=== PATIENT | female | born 1995 | race Caucasian/White ===

== ENCOUNTER 2019-10-25 16:32 | Emergency (ER) | payer MEDICAID ==
[~2019-10-25] VITALS: Ht 162.6 cm; Wt 72.7 kg
[2019-10-25 16:56] VITALS: BP 146/83
[2019-10-25] MEDS ORDERED: ALBU8HFA PO (17:21)
== END 2019-10-25 17:38 | disposition home or self-care (01) ==
LOC: ER 16:33
DX: J06.9 Acute upper respiratory infection, unspecified (principal); Z20.828 Contact with and (suspected) exposure to other viral communicable diseases; Z79.899 Other long term (current) drug therapy
CPT/HCPCS: 36415; 71045; 99284; U0003

== ENCOUNTER 2019-11-06 15:58 | Emergency (ER) | payer MEDICAID ==
[~2019-11-06 15:58] MED LIST: ALBU8HFA PO
== END 2019-11-06 16:35 | disposition left against medical advice (07) ==
LOC: ER 15:59
DX: Z00.00 Encounter for general adult medical examination without abnormal findings (principal); Z53.21 Procedure and treatment not carried out due to patient leaving prior to being seen by health care provider

== ENCOUNTER 2020-03-28 15:27 | Emergency (ER) | payer MEDICAID ==
[~2020-03-28] VITALS: Ht 162.6 cm; Wt 72.7 kg
[2020-03-28] MEDS ORDERED: dexamethasone sod phosphate 10mg/ml inj PO STA (15:47)
[2020-03-29] MEDS ORDERED: DULO60CA63 PO (05:17)
[2020-03-29] MEDS ORDERED: DIAZ5TAB PO (05:17)
[2020-03-29] MEDS ORDERED: METH36TA22 PO (14:08)
[2020-03-29] MEDS ORDERED: LAMO100T PO (14:08)
[2020-03-29] MEDS ORDERED: DIAZ-351 PO (14:08)
== END 2020-03-28 16:30 | disposition home or self-care (01) ==
LOC: ER 15:28
DX: J02.8 Acute pharyngitis due to other specified organisms (principal); Z20.828 Contact with and (suspected) exposure to other viral communicable diseases; Z87.891 Personal history of nicotine dependence; Z98.890 Other specified postprocedural states
CPT/HCPCS: 36415; 87635; 99283; J1100

== ENCOUNTER 2020-03-29 04:57 | Inpatient (IN) | payer MEDICAID ==
[~2020-03-29] VITALS: Ht 162.6 cm; Wt 77.0 kg
[2020-03-29] MEDS ORDERED: DIAZ5TAB PO (05:17)
[2020-03-29] MEDS ORDERED: DULO60CA63 PO (05:17)
--- NOTE | 2020-03-29 06:00 | NUR ---
dr. pollard at bedside to evaluate pt. pt ini airborn precautions dt having a covid swab pending from last night. pt then found getting out of bed and pulled iv out and had wisnessed fall onto ground and into the trash can. pt with no visable injuries , did not appear to hit her head,, and denies any pain. cleaned up and bedding changed and 2 person assist off ground and back to bed. Dr Pollard at bedside and request to have rapid covid run. swab collected. MARVIN Dunn assuming care
[2020-03-29 06:02] LABS: BASOPHILS % (AUTO) 0.3 % (0-1); EOSINOPHILS % (AUTO) 0.1 % (0-6); HEMATOCRIT 43.3 % (35.0-45.0); HEMOGLOBIN 14.7 g/dl (12.0-16.0); LYMPHOCYTES # (AUTO) 1.5 X10'3 (1.1-4.8); LYMPHOCYTES % (AUTO) 20.9 % (21-51); MEAN CORPUSCULAR HEMOGLOBIN 33.8 PG (27.0-31.0); MEAN CORPUSCULAR VOLUME 99.5 FL (78-98); MEAN PLATELET VOLUME 6.8 FL (7.4-10.4); MONOCYTES # (AUTO) 0.2 X10'3 (0-0.9); NEUTROPHILS # (AUTO) 5.4 X10'3 (1.8-7.7); NEUTROPHILS % (AUTO) 75.7 % (42-75); PLATELET COUNT 300 X10'3 (140-440); RED BLOOD COUNT 4.35 X10'6 (4.20-5.60); WHITE BLOOD COUNT 7.1 X10'3 (4.5-11.0)
[2020-03-29] MEDS ORDERED: LIDOcaine 1% W/epiNEPHrine 1:200,000 10ml vial IJ ONE (06:10)
--- NOTE | 2020-03-29 06:13 | NUR ---
notified to see left wrist wound. Wound is circa 4 cm in length and 1 cm wide..
[2020-03-29 06:18] LABS: ALANINE AMINOTRANSFERASE 51 U/L (12-78); ALBUMIN 4.1 G/DL (3.4-5.0); ALKALINE PHOSPHATASE 71 IU/L (46-116); ANION GAP 11 (8-16); ASPARTATE AMINO TRANSFERASE 22 U/L (10-37); BILIRUBIN,TOTAL 0.1 MG/DL (0.1-1.0); BLOOD UREA NITROGEN 6 MG/DL (7-18); CALCIUM 8.8 MG/DL (8.5-10.1); CHLORIDE 114 MMOL/L (99-107); GLUCOSE 84 MG/DL (70-104); POTASSIUM 3.4 MMOL/L (3.5-5.1); SODIUM 150 MMOL/L (135-145); TOTAL CARBON DIOXIDE 24.6 MMOL/L (24-32); TOTAL PROTEIN 8.4 G/DL (6.4-8.2); eGFR > 90 ML/MIN
[2020-03-29 06:27] LABS: URINE HCG NEGATIVE (NEG)
[2020-03-29 06:28] LABS: ETHANOL 0.231 GM/DL (0.0-0.010)
[2020-03-29 06:31] LABS: ACETAMINOPHEN 49.1 UG/ML (10-30)
[2020-03-29 06:33] LABS: CLARITY,URINE CLEAR (Clear); COLOR,URINE STRAW (Yellow); GLUCOSE, URINE NEGATIVE (Neg); KETONES,URINE NEGATIVE (Neg); LEUKOCYTE ESTERASE ,URINE NEGATIVE (Neg); NITRITES, URINE NEGATIVE (Neg); OCCULT BLOOD,URINE TRACE-INTACT (Neg); PROTEIN,URINE NEGATIVE (Neg); URINE AMPHETAMINE SCREEN NEGATIVE (Neg); URINE BARBITUATE SCREEN NEGATIVE (Neg); URINE BENZODIAZEPINES SCREEN POSITIVE (Neg); URINE CANNABINOID SCREEN NEGATIVE (Neg); URINE COCAINE SCREEN NEGATIVE (Neg); URINE METHADONE SCREEN NEGATIVE (Neg); URINE OPIATE SCREEN NEGATIVE (Neg); URINE PHENCYCLIDINE SCREEN NEGATIVE (Neg); UROBILINOGEN,URINE 0.2 E.U/dL (0.2-1.0)
[2020-03-29 06:47] LABS: UA COLLECTION TYPE OTHER
[2020-03-29 06:49] LABS: BACTERIA,URINE NONE SEEN /HPF (Neg); MUCUS STRANDS NONE SEEN /LPF (Neg); RBC,URINE NONE SEEN /HPF (0-2); SQUAMOUS EPITHELIAL CELL,UR FEW /LPF (FEW); WBC,URINE NONE SEEN /HPF (0-4)
--- NOTE | 2020-03-29 07:08 | NUR ---
POISON CONTROL HAD BEEN CALLED AFTER PATIENT TRIAGED AND DR. FENTON UPDATED BY MARVIN ROLLINS, OF RECOMMENDATIONS. NO NURSING NOTES WRITTEN SO I CALLED POISON CONTROL FOR THE ORIGNIAL RECOMMENDATIONS: WATCH FOR DRYWALL BOARDHANGER DEPRESSION AND RESPIRATORY DEPRESSION AND RECOMMENDATIONS FOR 4-6 HRS OF OBSERVATION. ALSO TO RUN BASIC LABS AND RULE OUT ELEVATED TYLENOL AND ASA LEVELS. NOW UPDATED OF LABS AND RECOMMEND STARTING MUCOMYST AND IF PROVIDER CHOOSES TO WAIT TO START, THEN REDRAW IN 4 HRS LFT AND TYLENOL. IF LFTS ELEVATED THEN START MUCOMYST. RECEIVING RNPARAG , UPDATED AND DR. RAYA UPDATE.
--- NOTE | 2020-03-29 08:15 | NUR ---
SUTURES APPLIED TO WOUND PER DR. RAYA. GAUZE DRESSING APPLIED FOR WOUND PROTECTION.
--- NOTE | 2020-03-29 08:40 | NUR ---
TOLERATED REGULAR DIET WELL AND RETAINED.
--- NOTE | 2020-03-29 09:30 | NUR ---
ASSUMED CARE OF PT, SPOKE TO HER SHE IS CALM AT THIS TIME, ASKED QUESTIONS, RE: IF SHE TRIED TO RUN OUT OF HERE, I EXPLAINED THE PROCESS OF HOW THINGS WORK HERE AND EVERYTHING THAT HAPPENS IN HER EVAL, SHE IS OK WITH THE PROCESS
--- NOTE | 2020-03-29 10:22 | NUR ---
SPOKE TO BERNARDA AT POISON CONTROL STATES THAT PT NEEDS TO BE STARTED ON MUCOMYST, WILL INFORM
[2020-03-29] MEDS ORDERED: ACETYLCYSTEINE IV ONE ×2 (10:25→11:30)
[2020-03-29] MEDS ORDERED: DEXTROSE 5% IV ONE ×2 (10:25→11:30)
[2020-03-29] MEDS ORDERED: WATER IV ONE ×2 (10:25→11:30)
--- NOTE | 2020-03-29 11:07 | NUR ---
pt is asleep, regular breathing observed, mucomyst running
[2020-03-29] MEDS ORDERED: acetaminophen 325mg tablet PO PRN (11:10)
[2020-03-29] MEDS ORDERED: magnesium hydroxide 30ml (MOM) UD suspension PO PRN (11:10)
[2020-03-29] MEDS ORDERED: ondansetron/PF 4mg/2ml inj IV PRN (11:10)
[2020-03-29] MEDS ORDERED: mag hydrox/Alum hydrox/simeth 30ml oral suspension PO PRN (11:10)
--- NOTE | 2020-03-29 11:21 | NUR ---
phlibotomy at bedside, pt is cooperative, no needs at this time
--- NOTE | 2020-03-29 11:40 | NUR ---
Man at bedside, pt is calm and cooperative
[2020-03-29] MEDS: normal saline 1000ml 1,000 ML IV SCH (11:52)
--- NOTE | 2020-03-29 12:30 | NUR ---
pt is asleep, regular breathing present, no needs at this time
--- NOTE | 2020-03-29 13:52 | NUR ---
pt is supine in bed, regular breathing present, eyes closed, appears to be asleep, mucomyst and NS running, no needs at this time
[2020-03-29] MEDS ORDERED: METH36TA22 PO (14:08)
[2020-03-29] MEDS ORDERED: DIAZ-351 PO (14:08)
[2020-03-29] MEDS ORDERED: LAMO100T PO (14:08)
--- NOTE | 2020-03-29 14:27 | NUR ---
Spoke with Prasad at poison control, she is suggesting new labs an hour prior to second bag of mukomyst is finished, ALT, AST, INR and Acetaminaphen, if ALT and AST, still normal and INR is below 2, and acetaminaphen level normal, than mukomyst can be stopped,
--- NOTE | 2020-03-29 15:02 | NUR ---
TECH IN WITH PT, TALKING CALMLY, NO NEEDS AT THIS TIME
[2020-03-29] MEDS ORDERED: acetylcysteine IV (Acetadote) 7,700 MG in dextrose 5%-water 961.5 ML IV ONE (15:30)
[2020-03-29 15:54] LABS: ACETAMINOPHEN < 2.0 UG/ML (10-30); ALANINE AMINOTRANSFERASE 41 U/L (12-78); ASPARTATE AMINO TRANSFERASE 12 U/L (10-37)
--- NOTE | 2020-03-29 15:58 | NUR ---
CHETAN PURCELL RE: DARYL DAVIS
--- NOTE | 2020-03-29 15:59 | NUR ---
SPOKE TO DR PURCELL RE: DC DRIP, HE STATES NO, CONTINUE MUCOMYST 24 HOURS
--- NOTE | 2020-03-29 16:00 | NUR ---
TECH BENJIE AT BEDSIDE WITH PT, PT IS CALM, NO NEEDS AT THIS TIME
--- NOTE | 2020-03-29 17:07 | NUR ---
MELISA OAKES AT BEDSIDE,WILL CONT TO MONITOR ,PRIMARY NURSE ON LUNCH BREAK AT THIS TIME.
--- NOTE | 2020-03-29 18:00 | NUR ---
PT IS SUPINE IN BED, TALKING WITH TECH, NO NEEDS AT THIS TIME
--- NOTE | 2020-03-29 18:38 | NUR ---
PT GIVEN DINNER TRAY, SHE IS SITTING UP IN BED, CALM NO NEEDS AT THIS TIME
--- NOTE | 2020-03-29 19:23 | NUR ---
CALLED AND GAVE REPORT TO MARVIN PERDOMO IN OVERFLOW
--- NOTE | 2020-03-29 19:38 | NUR ---
PT TAKEN FROM BED 8 IN MAIN ED TO ROOM 2O IN OVERFLOW BY KEVIN AND RN WITH NO INCINDENT, ON MONITOR
[2020-03-29] MEDS: lamoTRIgine 100mg tablet PO SCH (19:44)
[2020-03-29] MEDS: heparin, porcine 5000 units/ml vial SQ SCH (19:44)
--- NOTE | 2020-03-29 20:02 | NUR ---
Poison control's pharmacist, Kaylyn, has been updated on pt's condition. AST, ALT, and acetaminophen labs have been reported WNL. Pharmacist recommended that Acetadote gtt can either be dc'd now that labs are WNL or have the 1L bag run out. will be notified. Pharmacist has signed off on this case stating pt seems to be in stable condition. Addendum: 03/29/20 at 2024 by KIRIT MD Silva ordered to have 1L bag of Acetadote keep running until finished. Will contine to monitor, pt currently asymptomatic.
--- NOTE | 2020-03-29 21:16 | NUR ---
Report called for patient to MARVIN Izaguirre on ACCE unit. Pt to be transferred from ED Overflow room 23 to MED 311.
[2020-03-29 21:40] VITALS: BP 121/81
--- NOTE | 2020-03-29 21:40 | NUR ---
PT ARRIVED FROM ER. PT HAS BEEN ORIENTED TO THE ROOM. VSS. SITTER AT THE BEDSIDE. RECEIVED REPORT FROM MARVIN PERDOMO PRIOR TO PT'S ARRIVAL.
[2020-03-30 02:00] VITALS: BP 100/51
[2020-03-30 06:00] VITALS: BP 116/70
[2020-03-30 06:10] LABS: ALANINE AMINOTRANSFERASE 33 U/L (12-78); ALBUMIN 2.8 G/DL (3.4-5.0); ALBUMIN/GLOBULIN RATIO 0.9 (1.1-1.5); ALKALINE PHOSPHATASE 40 IU/L (46-116); ANION GAP 9 (8-16); ASPARTATE AMINO TRANSFERASE 14 U/L (10-37); BILIRUBIN,TOTAL 0.2 MG/DL (0.1-1.0); BLOOD UREA NITROGEN 8 MG/DL (7-18); BUN/CREATININE RATIO 12.3 (6.6-38.0); CHLORIDE 107 MMOL/L (99-107); CREATININE 0.65 MG/DL (0.40-0.90); GLUCOSE 95 MG/DL (70-104); POTASSIUM 3.3 MMOL/L (3.5-5.1); SODIUM 144 MMOL/L (135-145); TOTAL CARBON DIOXIDE 28.3 MMOL/L (24-32); TOTAL PROTEIN 5.9 G/DL (6.4-8.2); eGFR > 90 ML/MIN
--- NOTE | 2020-03-30 06:11 | NUR ---
Problems reprioritized. Patient report given, questions answered & plan of care reviewed with MARVIN CARR.
[2020-03-30 06:17] LABS: BASOPHILS % (AUTO) 0.7 % (0-1); EOSINOPHILS # (AUTO) 0.2 X10'3 (0-0.9); EOSINOPHILS % (AUTO) 3.6 % (0-6); HEMATOCRIT 37.7 % (35.0-45.0); HEMOGLOBIN 12.8 g/dl (12.0-16.0); LYMPHOCYTES # (AUTO) 3.1 X10'3 (1.1-4.8); MEAN CORPUSCULAR HEMOGLOBIN 33.8 PG (27.0-31.0); MEAN CORPUSCULAR HGB CONC 34.1 g/dL (33.0-36.5); MEAN CORPUSCULAR VOLUME 99.2 FL (78-98); MONOCYTES # (AUTO) 0.4 X10'3 (0-0.9); MONOCYTES % (AUTO) 6.9 % (2-12); NEUTROPHILS # (AUTO) 2.1 X10'3 (1.8-7.7); NEUTROPHILS % (AUTO) 35.8 % (42-75); PLATELET COUNT 227 X10'3 (140-440); RED CELL DISTRIBUTION WIDTH 12.9 % (11.5-14.5); WHITE BLOOD COUNT 5.8 X10'3 (4.5-11.0)
[2020-03-30 06:28] LABS: CALCIUM 8.8 MG/DL (8.5-10.1)
[2020-03-30 06:41] LABS: PLATELET ESTIMATE NORMAL; TOTAL CELLS COUNTED 100
--- NOTE | 2020-03-30 07:18 | NUR ---
Patient in room MED 311. I have received report from Tresa WONG and had the opportunity to ask questions and assume patient care.
--- NOTE | 2020-03-30 07:19 | NUR ---
Patient in room MED 311. I have received report from Tresa WONG and had the opportunity to ask questions and assume patient care. Patient in bed resting. Sitter present bedside. All immediate needs met at this time.
[2020-03-30] MEDS ORDERED: METHYLPHENIDATE 36 MG PO SCH (08:00)
[2020-03-30] MEDS: heparin, porcine 5000 units/ml vial SQ SCH ×2 (08:03→20:32)
[2020-03-30] MEDS: lamoTRIgine 100mg tablet PO SCH ×2 (08:03→20:32)
[2020-03-30] MEDS ORDERED: pneumococcal 23-VAL P-sac vacc 25 mcg/0.5ml vial IMVAC ONE (10:00)
[2020-03-30] MEDS ORDERED: FLU VACC QS2020-21(6MOS UP)/PF 60 MCG/0.5 ML SYRINGE IMVAC ONE (10:00)
[2020-03-30] MEDS ORDERED: magnesium Cl slow-release 64mg tablet PO PRN (10:30)
[2020-03-30] MEDS ORDERED: potassium Cl 20 mEq SR tablet PO PRN (10:30)
[2020-03-30] MEDS ORDERED: potassium Cl 40MEQ/1/2NS 520ml 520 ML IV PRN (10:30)
[2020-03-30] MEDS ORDERED: magnesium 4gm in 100ml NS 100 ML IV PRN (10:30)
--- NOTE | 2020-03-30 10:31 | NUR ---
Per Dr. Conway patient is medically cleared. Will notify executive secretary social welfare.
[2020-03-30] MEDS: normal saline 1000ml 1,000 ML IV SCH ×4 (10:59→21:42)
[2020-03-30 11:00] VITALS: BP 118/95
[2020-03-30] MEDS: potassium Cl 20 mEq SR tablet PO PRN ×3 (11:00→20:34)
[2020-03-30] MEDS: methylphenidate 5mg tablet PO SCH ×2 (12:38→17:25)
[2020-03-30 15:00] VITALS: BP 125/74
[2020-03-30 18:00] VITALS: BP 117/75
[2020-03-30] MEDS: duloxetine 30mg CAPSULE.DR PO SCH (20:32)
[2020-03-30] MEDS: K and/or MAG REPLACEMENT MC SCH (20:34)
--- NOTE | 2020-03-30 20:45 | NUR ---
Patient in room MED 311. I have received report from Carmen WONG and had the opportunity to ask questions and assume patient care. Addendum: 03/31/20 at 0152 by Caitlyn Baugh RN Amended: Links added.
--- NOTE | 2020-03-30 21:15 | NUR ---
Pt. Laying in bed watching tv with sitter in at bedside. Pt. appears pleasant and in good spirits and denies any plan/thoughts of harming self at this time. No c/o pain. Call light within reach. Pt. encourage to call nurse with any needs; pt. verbalized understanding. Addendum: 03/31/20 at 0417 by Caitlyn Baugh RN Amended: Links added.
[2020-03-30 22:00] VITALS: BP 104/51
[2020-03-31 02:00] VITALS: BP 111/67
[2020-03-31 02:23] LABS: BASOPHILS # (AUTO) 0.1 X10'3 (0-0.2); BASOPHILS % (AUTO) 1.1 % (0-1); EOSINOPHILS # (AUTO) 0.3 X10'3 (0-0.9); EOSINOPHILS % (AUTO) 4.6 % (0-6); HEMATOCRIT 38.2 % (35.0-45.0); LYMPHOCYTES # (AUTO) 2.6 X10'3 (1.1-4.8); LYMPHOCYTES % (AUTO) 42.8 % (21-51); MEAN CORPUSCULAR HGB CONC 34.1 g/dL (33.0-36.5); MEAN CORPUSCULAR VOLUME 99.8 FL (78-98); MONOCYTES # (AUTO) 0.4 X10'3 (0-0.9); MONOCYTES % (AUTO) 7.3 % (2-12); NEUTROPHILS # (AUTO) 2.7 X10'3 (1.8-7.7); NEUTROPHILS % (AUTO) 44.2 % (42-75); PLATELET COUNT 250 X10'3 (140-440); RED BLOOD COUNT 3.83 X10'6 (4.20-5.60); RED CELL DISTRIBUTION WIDTH 12.9 % (11.5-14.5); WHITE BLOOD COUNT 6.1 X10'3 (4.5-11.0)
[2020-03-31 02:39] LABS: ALANINE AMINOTRANSFERASE 34 U/L (12-78); ALBUMIN 3.1 G/DL (3.4-5.0); ALKALINE PHOSPHATASE 46 IU/L (46-116); ANION GAP 6 (8-16); ASPARTATE AMINO TRANSFERASE 18 U/L (10-37); BILIRUBIN,TOTAL 0.2 MG/DL (0.1-1.0); BLOOD UREA NITROGEN 9 MG/DL (7-18); BUN/CREATININE RATIO 16.1 (6.6-38.0); CALCIUM 8.8 MG/DL (8.5-10.1); CHLORIDE 106 MMOL/L (99-107); CREATININE 0.56 MG/DL (0.40-0.90); GLUCOSE 99 MG/DL (70-104); POTASSIUM 3.8 MMOL/L (3.5-5.1); SODIUM 141 MMOL/L (135-145); TOTAL PROTEIN 6.3 G/DL (6.4-8.2); eGFR > 90 ML/MIN
--- NOTE | 2020-03-31 06:00 | NUR ---
Problems reprioritized. Patient report given, questions answered & plan of care reviewed with Raghu ballard. Addendum: 03/31/20 at 0625 by Caitlyn Baugh RN Amended: Links added.
[2020-03-31 06:06] VITALS: BP 117/75
[2020-03-31] MEDS: K and/or MAG REPLACEMENT MC SCH ×2 (09:02→19:30)
[2020-03-31] MEDS: lamoTRIgine 100mg tablet PO SCH ×2 (09:35→19:24)
[2020-03-31] MEDS: heparin, porcine 5000 units/ml vial SQ SCH ×2 (09:36→19:24)
[2020-03-31] MEDS: methylphenidate 5mg tablet PO SCH ×3 (09:36→17:48)
[2020-03-31 11:26] VITALS: BP 123/80
[2020-03-31] MEDS: normal saline 1000ml 1,000 ML IV SCH ×2 (13:10→23:10)
[2020-03-31 16:04] VITALS: BP 119/74
--- NOTE | 2020-03-31 18:28 | NUR ---
Problems reprioritized. Patient report given, questions answered & plan of care reviewed with Tea WONG.
--- NOTE | 2020-03-31 18:30 | NUR ---
Patient in room MED 311. I have received report from Uday,band had the opportunity to ask questions and assume patient care.
[2020-03-31] MEDS: duloxetine 30mg CAPSULE.DR PO SCH (19:24)
[2020-03-31] MEDS: diazepam 5mg tablet PO PRN (19:24)
[2020-03-31 19:30] VITALS: BP 104/51
[2020-03-31 22:00] VITALS: BP 109/53
[2020-04-01 06:00] VITALS: BP 104/65
[2020-04-01 06:04] LABS: BASOPHILS % (AUTO) 0.7 % (0-1); EOSINOPHILS # (AUTO) 0.3 X10'3 (0-0.9); EOSINOPHILS % (AUTO) 4.3 % (0-6); HEMOGLOBIN 13.9 g/dl (12.0-16.0); LYMPHOCYTES # (AUTO) 2.5 X10'3 (1.1-4.8); LYMPHOCYTES % (AUTO) 39.1 % (21-51); MEAN CORPUSCULAR HEMOGLOBIN 33.5 PG (27.0-31.0); MEAN CORPUSCULAR HGB CONC 33.8 g/dL (33.0-36.5); MEAN CORPUSCULAR VOLUME 98.9 FL (78-98); MEAN PLATELET VOLUME 6.9 FL (7.4-10.4); MONOCYTES # (AUTO) 0.6 X10'3 (0-0.9); MONOCYTES % (AUTO) 9.1 % (2-12); NEUTROPHILS % (AUTO) 46.8 % (42-75); PLATELET COUNT 277 X10'3 (140-440); RED BLOOD COUNT 4.14 X10'6 (4.20-5.60); WHITE BLOOD COUNT 6.3 X10'3 (4.5-11.0)
--- NOTE | 2020-04-01 06:19 | NUR ---
Patient in room MED 311. I have received report from MARVIN CAMERON and had the opportunity to ask questions and assume patient care.
--- NOTE | 2020-04-01 06:19 | NUR ---
Problems reprioritized. Patient report given, questions answered & plan of care reviewed with Ria.
[2020-04-01 06:26] LABS: ALANINE AMINOTRANSFERASE 82 U/L (12-78); ALBUMIN 3.4 G/DL (3.4-5.0); ALKALINE PHOSPHATASE 46 IU/L (46-116); ANION GAP 7 (8-16); ASPARTATE AMINO TRANSFERASE 75 U/L (10-37); BILIRUBIN,TOTAL 0.2 MG/DL (0.1-1.0); BLOOD UREA NITROGEN 12 MG/DL (7-18); BUN/CREATININE RATIO 17.4 (6.6-38.0); CHLORIDE 106 MMOL/L (99-107); CREATININE 0.69 MG/DL (0.40-0.90); GLUCOSE 93 MG/DL (70-104); POTASSIUM 4.4 MMOL/L (3.5-5.1); SODIUM 142 MMOL/L (135-145); TOTAL CARBON DIOXIDE 29.2 MMOL/L (24-32); TOTAL PROTEIN 6.7 G/DL (6.4-8.2); eGFR > 90 ML/MIN
[2020-04-01] MEDS: heparin, porcine 5000 units/ml vial SQ SCH (08:00)
[2020-04-01] MEDS: lamoTRIgine 100mg tablet PO SCH (08:18)
[2020-04-01] MEDS: methylphenidate 5mg tablet PO SCH ×2 (08:18→12:28)
[2020-04-01] MEDS: diazepam 5mg tablet PO PRN (08:23)
[2020-04-01 11:00] VITALS: BP 109/46
== END 2020-04-01 13:46 | DRG 817 ==
LOC: ER 04:57 → ED HOLD 11:06 → MED 3N 21:35
PROVIDERS: ADMIT Family Medicine; ATTEND Family Medicine
PROC: 0HQGXZZ Repair Left Hand Skin, External Approach (ICD-10-PCS; principal; 2020-03-29)
DX: T42.4X2A Poisoning by benzodiazepines, intentional self-harm, initial encounter (principal); E87.6 Hypokalemia; F10.920 Alcohol use, unspecified with intoxication, uncomplicated; F17.210 Nicotine dependence, cigarettes, uncomplicated; Z20.822 Contact with and (suspected) exposure to COVID-19; T39.1X2A Poisoning by 4-Aminophenol derivatives, intentional self-harm, initial encounter; F31.9 Bipolar disorder, unspecified; F43.10 Post-traumatic stress disorder, unspecified; S61.512A Laceration without foreign body of left wrist, initial encounter; Y90.7 Blood alcohol level of 200-239 mg/100 ml; Z28.21 Immunization not carried out because of patient refusal; Y92.098 Other place in other non-institutional residence as the place of occurrence of the external cause
CPT/HCPCS: 12002; 36415; 80053; 80305; 80320; 80329; 81001; 81025; 84443; 84450; 84460; 85007; 85025; 85610; 87081; 87635; 93005; 96365; 96366; 99285; C9803; G0378; J0132; J1644; J7030; J7060; J7070